=== PATIENT | female | born 1995 | race Hispanic/Latino ===

== ENCOUNTER 2018-03-08 04:09 | Emergency (ER) | payer BC, OTHER ==
[2018-03-08 04:46] LABS: APPEARANCE,URINE Cloudy (CLEAR); BILIRUBIN,URINE Negative (NEGATIVE); COLOR,URINE Red (YELLOW); GLUCOSE, URINE (UA) Negative (NEGATIVE); KETONES,URINE Negative (NEGATIVE); LEUKOCYTE ESTERASE ,URINE Large (NEGATIVE); NITRATE,URINE Negative (NEGATIVE); OCCULT BLOOD,URINE Large (NEGATIVE); PH,URINE 6.5 (5.0-8.0); PROTEIN,URINE POS 1+ (NEGATIVE)
[2018-03-08 04:47] LABS: HCG,QUAL RESULT NEGATIVE (NEGATIVE)
[2018-03-08] MEDS ORDERED: CEFTRIAXONE SODIUM 1 GM ONE (05:18)
[2018-03-08] MEDS ORDERED: LIDOCAINE HCL-MPF 1% 2ML VIAL ONE (05:18)
[2018-03-08] MEDS ORDERED: PHENAZOPYRIDINE HCL 200 MG TABLET ONE (05:19)
[2018-03-08 05:20] LABS: BACTERIA,URINE Few /HPF (None Seen); RBC,URINE TNTC /HPF (0-1)
== END 2018-03-08 05:35 | disposition home or self-care (01) ==
LOC: EDH 04:09
DX: N30.01 Acute cystitis with hematuria (principal)
CPT/HCPCS: 81001; 81025; 96372; 99284; J0696; J3490